=== PATIENT | male | born 1960 | race Hispanic/Latino ===

== ENCOUNTER 2022-03-06 22:13 | Emergency (ER) | payer MEDICARE ==
[2022-03-07 00:07] LABS: Basophils # (Auto) 0.1 K/mm3 (0.0-0.1); Eosinophils # (Auto) 0.1 K/mm3 (0.0-0.4); Eosinophils % (Auto) 1.7 % (0.0-4.3); Hematocrit 40.4 % (35.5-45.6); Lymphocytes # (Auto) 1.5 K/mm3 (1.2-5.4); Lymphocytes % (Auto) 20.2 % (13.4-35.0); Mean Corpuscular HGB Conc 35 % (32-34); Mean Corpuscular Volume 99 fl (84-94); Monocytes # (Auto) 1.1 K/mm3 (0.0-0.8); Monocytes % (Auto) 14.5 % (0.0-7.3); Red Blood Count 4.07 M/mm3 (3.65-5.03); Red Cell Distribution Width 16.5 % (13.2-15.2)
[2022-03-07 00:14] LABS: Platelet Count 91 K/mm3 (140-440)
[2022-03-07 00:23] LABS: Bilirubin,Direct 1.2 mg/dL (0-0.2)
[2022-03-07 00:27] LABS: Alanine Aminotransferase 17 units/L (7-56); Albumin 3.1 g/dL (3.9-5); Blood Urea Nitrogen 8 mg/dL (9-20); Calcium 8.8 mg/dL (8.4-10.2); Hemolysis Index 4
[2022-03-07 00:30] LABS: BUN/Creatinine Ratio 13
[2022-03-07] MEDS ORDERED: MORPHINE 4 MG/1 ML INJ IV ONE (06:21)
--- NOTE | 2022-03-07 06:23 | Emergency Department Report ---
ED General Adult HPI - General Chief complaint: Abdominal Pain Stated complaint: Abdominal distention for a few months Time Seen by Provider: 03/07/22 06:11 Source: patient, RN notes reviewed, old records reviewed Mode of arrival: Ambulatory Limitations: Physical Limitation - History of Present Illness Initial comments: The patient was evaluated in the emergency department for symptoms described in the history of present illness. He/she was evaluated in the context of the global COVID-19 pandemic, which necessitated consideration that the patient m ight be at risk for infection with the virus that causes COVID-19. Institutional protocols and algorithms that pertain to the evaluation of patients at risk for COVID-19 are in a state of rapid change based on information released by regulatory bodies including the CDC and federal and state organizations. These policies and algorithms were followed during the patient's care in the emergency department. Please note that these policies, procedures and recommendations changed on a rapid basis. Primary care provider, [facility]. Outpatient GI, Dr. Jr Reilly Past medical history, hepatitis C. Current medications include carvedilol, omeprazole, furosemide, spironolactone, and glimepiride. Patient has a past medical history of type 2 diabetes, relatively newly diagnosed cirrhosis, and hepatitis C. Patient reports abdominal cramping and distention for the past few months. He saw his outpatient provider, and was found to have ascites, and was referred to the emergency room for paracentesis. He may have had mild abdominal leaking, which is now resolved. Patient currently denies headache, neck pain, chest pain, he has mild shortness of breath, he has no hematemesis of bright red blood per rectum. He smokes cigarettes. He denies IV drug use. He denies urinary symptoms. His primary complaint today is abdominal distention. -: month(s) Location: abdomen Consistency: constant Improves with: none Worsens with: movement - Related Data Previous Rx's Medication Instructions Recorded Last Taken Type Multivitamin with Folic Acid [[facility] 400 mcg PO QDAY #30 tablet 03/07/22 Unknown Rx One Daily Essential Tablet] chlordiazePOXIDE [Librium] 25 mg PO Q6H PRN #25 capsule 03/07/22 Unknown Rx Allergies Allergy/AdvReac Type Severity Reaction Status Date / Time No Known Allergies Allergy Verified 03/06/22 22:22 ED Review of Systems ROS: Stated complaint: REFERRED BY DOCTOR/ABD PAIN/LEAKING FLUID Other details as noted in HPI Constitutional: denies: fever Eyes: denies: eye discharge ENT: denies: epistaxis Respiratory: denies: wheezing Cardiovascular: denies: chest pain Gastrointestinal: other (Abdominal cramping and distention). denies: vomiting, hematemesis, melena, hematochezia Genitourinary: denies: dysuria Neurological: denies: weakness Hematological/Lymphatic: denies: easy bleeding ED Past Medical Hx - Past Medical History Previous Medical History?: Yes Hx Liver Disease: Yes (ACITIES) - Surgical History Past Surgical History?: No - Social History Smoking Status: Unknown if ever smoked - Medications Home Medications: Home Medications Medication Instructions Recorded Confirmed Last Taken Type Multivitamin with Folic Acid [[facility] 400 mcg PO QDAY #30 tablet 03/07/22 Unknown Rx One Daily Essential Tablet] chlordiazePOXIDE [Librium] 25 mg PO Q6H PRN #25 capsule 03/07/22 Unknown Rx ED Physical Exam - General Limitations: Physical Limitation General appearance: alert, in no apparent distress - Head Head exam: Present: atraumatic, normocephalic - Eye Eye exam: Present: normal appearance, EOMI. Absent: nystagmus - ENT ENT exam: Present: normal exam, normal orophraynx, mucous membranes moist, normal external ear exam - Neck Neck exam: Present: normal inspection, full ROM. Absent: tenderness, meningismus - Respiratory Respiratory exam: Present: normal lung sounds bilaterally. Absent: respiratory distress, wheezes, rales, rhonchi, stridor - Cardiovascular Cardiovascular Exam: Present: normal rhythm, tachycardia, normal heart sounds. Absent: bradycardia, irregular rhythm, systolic murmur, diastolic murmur, rubs, gallop - GI/Abdominal GI/Abdominal exam: Present: soft, distended, tenderness, hernia. Absent: guarding, rebound, rigid - Rectal Rectal exam: Present: deferred - Extremities Exam Extremities exam: Present: normal inspection, full ROM, pedal edema (1+ edema in the bilateral lower extremity), other (2+ pulses noted in the bilateral upper and lower extremities. There is no palpable cord. negative Homans sign. Muscular compartments are soft. The pelvis is stable.). Absent: calf tenderness - Back Exam Back exam: Present: normal inspection. Absent: tenderness, CVA tenderness (R), CVA tenderness (L), paraspinal tenderness, vertebral tenderness - Neurological Exam Neurological exam: Present: alert, oriented X3, other (No facial droop. Tongue midline. Extraocular movements intact bilaterally. Facial sensation intact to light touch in V1, V2, V3 distribution bilaterally. 5 and a 5 strength in 4 extremities. Sensation intact to light touch in 4 extremities.). Absent: motor sensory deficit - Psychiatric Psychiatric exam: Present: normal affect, normal mood - Skin Skin exam: Present: warm, dry, intact, normal color. Absent: rash ED Course Vital Signs 03/06/22 03/07/22 03/07/22 22:20 03:42 03:45 Temperature 98.3 F Pulse Rate 125 H 120 H 117 H Respiratory 20 22 27 H Rate Blood Pressure 141/87 185/96 Blood Pressure [Left] O2 Sat by Pulse 95 96 97 Oximetry 03/07/22 03/07/22 03/07/22 04:01 04:15 04:31 Temperature Pulse Rate 112 H 109 H 116 H Respiratory 23 22 12 Rate Blood Pressure 155/95 155/89 149/84 Blood Pressure [Left] O2 Sat by Pulse 94 93 94 Oximetry 03/07/22 03/07/22 03/07/22 04:45 05:01 05:15 Temperature Pulse Rate 113 H Respiratory 18 Rate Blood Pressure 147/86 122/68 124/58 Blood Pressure [Left] O2 Sat by Pulse 92 93 93 Oximetry 03/07/22 03/07/22 03/07/22 05:31 05:45 06:01 Temperature Pulse Rate Respiratory Rate Blood Pressure 123/60 123/60 123/69 Blood Pressure [Left] O2 Sat by Pulse 88 91 92 Oximetry 03/07/22 03/07/22 03/07/22 06:15 06:25 06:30 Temperature Pulse Rate Respiratory Rate Blood Pressure 129/89 123/69 Blood Pressure [Left] O2 Sat by Pulse 92 92 94 Oximetry 03/07/22 03/07/22 03/07/22 08:12 08:16 08:32 Temperature 98.9 F Pulse Rate 111 H Respiratory 18 Rate Blood Pressure 129/89 161/85 129/89 Blood Pressure 161/85 [Left] O2 Sat by Pulse 84 93 96 Oximetry 03/07/22 03/07/22 03/07/22 09:27 09:30 09:45 Temperature Pulse Rate 119 H 127 H Respiratory 19 25 H 26 H Rate Blood Pressure 142/98 142/98 159/77 Blood Pressure [Left] O2 Sat by Pulse 93 95 91 Oximetry 03/07/22 03/07/22 03/07/22 09:50 10:00 10:16 Temperature Pulse Rate 125 H 118 H 114 H Respiratory 23 24 23 Rate Blood Pressure 144/77 142/79 Blood Pressure 145/69 [Left] O2 Sat by Pulse 99 88 93 Oximetry 03/07/22 03/07/22 03/07/22 10:30 10:46 11:00 Temperature Pulse Rate 109 H 110 H 105 H Respiratory 20 26 H 18 Rate Blood Pressure 145/75 147/77 141/69 Blood Pressure [Left] O2 Sat by Pulse 92 94 94 Oximetry 03/07/22 03/07/22 03/07/22 11:16 11:30 11:46 Temperature Pulse Rate 103 H 103 H 111 H Respiratory 18 19 15 Rate Blood Pressure 140/69 135/76 135/76 Blood Pressure [Left] O2 Sat by Pulse 96 95 91 Oximetry - Reevaluation(s) Reevaluation #1: 03/07/22 08:15 Differential diagnosis, including not limited to: Symptomatic ascites, hepatitis C Assessment and plan: 62-year-old gentleman here with abdominal distention and symptomatic ascites. Heart rate currently 105 to 110 bpm, likely secondary to volume overload. Lung sounds clear. Saturating at 96% on room air. Abdomen does not have any significant tenderness, rebound, or guarding. His examination is not suggestive of spontaneous bacterial peritonitis. We will treat his symptoms. Have ordered ultrasound-guided large-volume paracentesis. I discussed this with the patient and family member at the bedside. They are agreeable to the plan of care. Currently awaiting interventional radiology to perform ultrasound-guided paracentesis 03/07/22 11:18 Patient had approximately 7.5 L of ascites fluid removed. Albumin is ordered. He initially had some tachycardia, which was markedly improved with Valium. He does consume alcohol. He is currently resting comfortably with a heart rate of 104 bpm. 03/07/22 12:10 Final reassessment. Gram stain negative. Cell counts are essentially unremarkable. Total protein and albumin will be sent Downs. Patient can follow-up with his outpatient primary care doctor or his outpatient GI physician. Heart rate 104 bpm. He is in no acute distress. He may follow- up with outpatient GI. ED Medical Decision Making - Lab Data Result diagrams: 03/06/22 23:44 03/06/22 23:44 Vital Signs 03/06/22 03/07/22 22:20 06:25 Temperature 98.3 F Pulse Rate 125 H Respiratory 20 Rate Blood Pressure 141/87 O2 Sat by Pulse 95 92 Oximetry Lab Results 03/06/22 03/06/22 03/06/22 Range/Units 23:44 23:44 23:44 WBC 7.5 (4.5-11.0) K/mm3 RBC 4.07 (3.65-5.03) M/mm3 Hgb 14.0 (11.8-15.2) gm/dl Hct 40.4 (35.5-45.6) % MCV 99 H (84-94) fl MCH 35 H (28-32) pg MCHC 35 H (32-34) % RDW 16.5 H (13.2-15.2) % Plt Count 91 L (140-440) K/mm3 Lymph % (Auto) 20.2 (13.4-35.0) % Hern[place] % (Auto) 14.5 H (0.0-7.3) % Eos % (Auto) 1.7 (0.0-4.3) % Baso % (Auto) 1.0 (0.0-1.8) % Lymph # (Auto) 1.5 (1.2-5.4) K/mm3 [place] # (Auto) 1.1 H (0.0-0.8) K/mm3 Eos # (Auto) 0.1 (0.0-0.4) K/mm3 Baso # (Auto) 0.1 (0.0-0.1) K/mm3 Seg Neutrophils % 62.6 (40.0-70.0) % Seg Neutrophils # 4.7 (1.8-7.7) K/mm3 PT (12.2-14.9) Sec. INR (0.87-1.13) APTT (24.2-36.6) Sec. Sodium 134 L (137-145) mmol/L Potassium 3.6 (3.6-5.0) mmol/L Chloride 99.4 (98-107) mmol/L Carbon Dioxide 23 (22-30) mmol/L Anion Gap 15 mmol/L BUN 8 L (9-20) mg/dL Creatinine 0.6 L (0.8-1.3) mg/dL Estimated GFR > 60 ml/min BUN/Creatinine Ratio 13 % Glucose 229 H (75-100) mg/dL Calcium 8.8 (8.4-10.2) mg/dL Total Bilirubin 3.10 H 3.20 H (0.1-1.2) mg/dL Direct Bilirubin 1.2 H (0-0.2) mg/dL Indirect Bilirubin 2.0 mg/dL AST 44 H 45 H (5-40) units/L ALT 17 18 (7-56) units/L Alkaline Phosphatase 174 H 176 H (35-129) units/L Total Protein 8.4 H 8.4 H (6.3-8.2) g/dL Albumin 3.1 L 3.0 L (3.9-5) g/dL Albumin/Globulin Ratio 0.6 0.6 % /30/ Range/Units 07:30 WBC (4.5-11.0) K/mm3 RBC (3.65-5.03) M/mm3 Hgb (11.8-15.2) gm/dl Hct (35.5-45.6) % MCV (84-94) fl MCH (28-32) pg MCHC (32-34) % RDW (13.2-15.2) % Plt Count (140-440) K/mm3 Lymph % (Auto) (13.4-35.0) % Hern[place] % (Auto) (0.0-7.3) % Eos % (Auto) (0.0-4.3) % Baso % (Auto) (0.0-1.8) % Lymph # (Auto) (1.2-5.4) K/mm3 [place] # (Auto) (0.0-0.8) K/mm3 Eos # (Auto) (0.0-0.4) K/mm3 Baso # (Auto) (0.0-0.1) K/mm3 Seg Neutrophils % (40.0-70.0) % Seg Neutrophils # (1.8-7.7) K/mm3 PT 18.9 H (12.2-14.9) Sec. INR 1.37 H (0.87-1.13) APTT 30.4 (24.2-36.6) Sec. Sodium (137-145) mmol/L Potassium (3.6-5.0) mmol/L Chloride (98-107) mmol/L Carbon Dioxide (22-30) mmol/L Anion Gap mmol/L BUN (9-20) mg/dL Creatinine (0.8-1.3) mg/dL Estimated GFR ml/min BUN/Creatinine Ratio % Glucose (75-100) mg/dL Calcium (8.4-10.2) mg/dL Total Bilirubin (0.1-1.2) mg/dL Direct Bilirubin (0-0.2) mg/dL Indirect Bilirubin mg/dL AST (5-40) units/L ALT (7-56) units/L Alkaline Phosphatase (35-129) units/L Total Protein (6.3-8.2) g/dL Albumin (3.9-5) g/dL Albumin/Globulin Ratio % Vital Signs 03/06/22 03/07/22 03/07/22 22:20 03:42 03:45 Temperature 98.3 F Pulse Rate 125 H 120 H 117 H Respiratory 20 22 27 H Rate Blood Pressure 141/87 185/96 Blood Pressure [Left] O2 Sat by Pulse 95 96 97 Oximetry 03/07/22 03/07/22 03/07/22 04:01 04:15 04:31 Temperature Pulse Rate 112 H 109 H 116 H Respiratory 23 22 12 Rate Blood Pressure 155/95 155/89 149/84 Blood Pressure [Left] O2 Sat by Pulse 94 93 94 Oximetry 03/07/22 03/07/22 03/07/22 04:45 05:01 05:15 Temperature Pulse Rate 113 H Respiratory 18 Rate Blood Pressure 147/86 122/68 124/58 Blood Pressure [Left] O2 Sat by Pulse 92 93 93 Oximetry 03/07/22 03/07/22 03/07/22 05:31 05:45 06:01 Temperature Pulse Rate Respiratory Rate Blood Pressure 123/60 123/60 123/69 Blood Pressure [Left] O2 Sat by Pulse 88 91 92 Oximetry 03/07/22 03/07/22 03/07/22 06:15 06:25 06:30 Temperature Pulse Rate Respiratory Rate Blood Pressure 129/89 123/69 Blood Pressure [Left] O2 Sat by Pulse 92 92 94 Oximetry 03/07/22 03/07/22 03/07/22 08:12 08:16 08:32 Temperature 98.9 F Pulse Rate 111 H Respiratory 18 Rate Blood Pressure 129/89 161/85 129/89 Blood Pressure 161/85 [Left] O2 Sat by Pulse 84 93 96 Oximetry 03/07/22 03/07/22 03/07/22 09:27 09:30 09:45 Temperature Pulse Rate 119 H 127 H Respiratory 19 25 H 26 H Rate Blood Pressure 142/98 142/98 159/77 Blood Pressure [Left] O2 Sat by Pulse 93 95 91 Oximetry 03/07/22 03/07/22 03/07/22 09:50 10:00 10:16 Temperature Pulse Rate 125 H 118 H 114 H Respiratory 23 24 23 Rate Blood Pressure 144/77 142/79 Blood Pressure 145/69 [Left] O2 Sat by Pulse 99 88 93 Oximetry 03/07/22 03/07/22 03/07/22 10:30 10:46 11:00 Temperature Pulse Rate 109 H 110 H 105 H Respiratory 20 26 H 18 Rate Blood Pressure 145/75 147/77 141/69 Blood Pressure [Left] O2 Sat by Pulse 92 94 94 Oximetry 03/07/22 03/07/22 03/07/22 11:16 11:30 11:46 Temperature Pulse Rate 103 H 103 H 111 H Respiratory 18 19 15 Rate Blood Pressure 140/69 135/76 135/76 Blood Pressure [Left] O2 Sat by Pulse 96 95 91 Oximetry Critical care attestation.: If time is entered above; I have spent that time in minutes in the direct care of this critically ill patient, excluding procedure time. ED Disposition Clinical Impression: Ascites, Hepatitis C Disposition: 01 HOME / SELF CARE / HOMELESS Is pt being admited?: No Does the pt Need Aspirin: No Condition: Stable Instructions: Hepatitis C, [id number], Ascites Additional Instructions: Please continue current outpatient medications. Please avoid consumption of Motrin, ibuprofen, Naprosyn, Aleve, alcohol, tobacco and smoke products. Consume a low-salt diet. Follow-up with your outpatient primary care doctor or GI physician within the next week. Have your outpatient physicians contact the medical records department, to follow-up on send out l aboratory studies, total protein and albumin, from ascites fluid. Please coordinate with your outpatient GI physician to have outpatient paracenteses scheduled. Your outpatient primary care doctor or GI physician should be able to coordinate outpatient ultrasound-guided paracentesis for symptomatic control. Should follow-up with outpatient primary or GI within the next week to 2 weeks. Please return to the emergency room right away with new pain, worsened pain, migration of pain, projectile vomiting, change in mental status, confusion, inability tolerate liquid feeds, new, worsened or different symptoms not present on the initial emergency room evaluation Prescriptions: Multivitamin with Folic Acid [[facility] One Daily Essential Tablet] 400 mcg PO QDAY #30 tablet chlordiazePOXIDE [Librium] 25 mg PO Q6H PRN #25 capsule PRN Reason: Alcohol Withdrawal Referrals: JR REILLY MD [Staff Physician] - 3-5 Days Forms: Work/School Release Form(ED)
[2022-03-07 07:50] LABS: INR 1.37 (0.87-1.13); Partial Thromboplastin Time 30.4 Sec. (24.2-36.6)
[2022-03-07] MEDS ORDERED: chlordiazePOXIDE 25 MG CAP PO PRN (09:34)
[2022-03-07] MEDS ORDERED: LORazepam 2 MG/ML VIAL IV PRN ×2 (09:34)
--- NOTE | 2022-03-07 09:39 | Procedure Note ---
Date of procedure: 03/07/22 Pre-op diagnosis: ascites Post-op diagnosis: same Procedure: us paracentesis Findings: large ascites Anesthesia: local Surgeon: LUDIVINA GARCIA Estimated blood loss: none Pathology: list (120cc saved in case labs needed) Condition: stable Disposition: other (back to ER)
--- NOTE | 2022-03-07 09:43 | Ultrasound Report ---
ULTRASOUND-GUIDED PARACENTESIS HISTORY: ascites. PROCEDURE: The risks (including but not limited to bleeding, infection, and bowel injury) and benefi ts were explained to the patient and informed consent was obtained. A time out procedure was perform ed. Ultrasound was used to evaluate the abdomen and locate the largest ascites fluid pocket. Once the sk in was marked, the procedure site was prepped and draped in the usual sterile fashion and lidocaine w as used for local anesthesia. A 5 Yoruba centesis catheter was placed. The patient was monitored cl osely throughout the procedure, and a total of 7500 mL of clear yellow fluid was aspirated. 120 cc o f fluid was saved for laboratory analysis was needed. No labs were ordered. The patient tolerated the procedure well with no complications. IMPRESSION: Successful ultrasound-guided paracentesis as described. Signer Name: Nathaniel Macedo Jr, MD Signed: 03/07/2022 9:39 AM Workstation Name: [id number]
[2022-03-07] MEDS ORDERED: diazePAM 10 MG/2 ML SYRINGE IV ONE (09:49)
[2022-03-07] MEDS ORDERED: ALBUMIN HUMAN 25% (25 GM/100 ML) INJ IV ONE (10:30)
[2022-03-07 11:57] LABS: Total Cells Counted 100 /mm3
[2022-03-07 11:59] VITALS: BP 135/76
== END 2022-03-07 12:57 | disposition home or self-care (01) ==
LOC: EDBD → ED 22:13
DX: R18.8 Other ascites (principal); B19.20 Unspecified viral hepatitis C without hepatic coma; K76.9 Liver disease, unspecified
CPT/HCPCS: 36415; 49083; 80053; 80076; 82040; 84160; 85025; 85610; 85730; 87205; 88112; 89051; 96374; 96375; 99284; J2270; J3360; P9047